=== PATIENT | female | born 1995 | race Caucasian/White ===

== ENCOUNTER → 2024-01-24 11:04 | Outpatient (REF) | payer OTHER, SELFPAY | LOC: HWRAD 11:04 | PROVIDERS: ATTENDING PHYSICIAN Obstetrics & Gynecology Gynecology; FAMILY PHYSICIAN Family Medicine | DX: N83.201 Unspecified ovarian cyst, right side (principal) | CPT/HCPCS: 76830; 76856 ==

== ENCOUNTER 2024-09-17 02:49 | Emergency (ER) | payer OTHER, SELFPAY ==
[2024-09-17 02:49] VITALS: BMI 20.4
[2024-09-17 02:58] VITALS: BP 110/66
[2024-09-17 03:00] VITALS: BP 103/80
[2024-09-17 04:00] VITALS: BP 98/70
--- NOTE | 2024-09-17 04:56 | ED.GENMED ---
History of Present Illness
General
Chief Complaint: Anxiety
Source: patient
Exam Limitations: none
Time Seen by Provider: 09/17/24 04:41
Nursing documentation reviewed up to this point in time: agreed with
History of Present Illness
History of Present Illness:
This is a 29-year-old female who has history of anxiety, chronically maintained on fluoxetine. She states she awoke suddenly tonight feeling panicked, heart palpitations, numbness and tingling around her mouth and tongue, tingling of her fingers,
vision difficulty. She felt well prior to going to bed. She is unsure if she was dreaming prior to waking up feeling panicked. She arrives via EMS and is feeling markedly improved since arrival, complete resolution of symptoms without return.
She denies risk of , has normal menstrual period currently.
She denies alcohol or drug use.
She denies significant caffeine use.
Past History
Past History
ED Past Medical History: Psychiatric (Anxiety); Negative Asthma, HTN, Hypercholesterolemia or NIDDM
ED Past Surgical History: None
Social History
Tobacco: Non-smoker
Alcohol: Occasional
Drug: None
Personal: Single
Living: with family
Employment: Employed
Family History
Family History: Other (Noncontributory)
Phy Exam
Physical Exam
Physical Exam:
GENERAL: 29-year-old female appears her stated age, awake and alert, pleasant, appears in no acute distress. Easily communicative.
EYE: pupils equal and reactive. anicteric
NECK: Supple, nontender, no meningismus, no significant adenopathy.
ENT:oral mucosa is moist. No rhinorrhea.
CARDIAC: Regular rate and rhythm. no murmur. No rub.
LUNGS: Clear breath sounds bilaterally, no acute respiratory distress, no wheezes/rales/rhonchi
ABDOMEN: Soft, nondistended, without focal tenderness, no r/g, no cvat. normoactive BS.
NEUROLOGICAL: Alert and oriented x3, no focal neuro deficits.
SKIN: Warm and dry, normal color, skin intact. No rash.
MUSCULOSKELETAL: No C/C/E. peripheral pulses are full and equal b/l. No palpable tenderness.
PSYCH: Normal and appropriate interaction.
Course
Vital Signs
Initial and Last Documented VS:
Initial Vital Signs
Pulse Resp
75 11
09/17/24 02:57 09/17/24 02:57
Last Documented Vital Signs
Temp Pulse Resp BP Pulse Ox
98.6 F 69 16 103/80 100
09/17/24 03:18 09/17/24 03:15 09/17/24 03:18 09/17/24 03:00 09/17/24 03:15
MDM/Problems Addressed
Differential Diagnosis Includes:
History and exam most consistent with acute anxiety/acute panic attack with hyperventilation syndrome. I wonder if patient awoke from a nightmare/night terror.
Symptoms promptly resolved without return.
Monitor shows normal sinus rhythm without ectopy. No evidence of arrhythmia.
Vital signs within normal limits.
At this point no indication for laboratory studies nor imaging.
Patient eager to be discharged to home.
Recommend she continue her current dose of fluoxetine, prompt follow-up with PCP for recheck.
Return precautions discussed.
Chronic conditions affecting care: Psychiatric illness
Acute Exacerbation and/or Progression of Chronic Illness: Psychiatric illness
*Pulse Oximetry
Patient hypoxic: no
*[facility] Interpretation
Rate: normal
Interpretation: normal
Rhythm: sinus
*Critical Care Note
Total Time (30-74mins, 75-104mins- exclusive of procedures): Not Applicable
ED Attending Note
-
Portions of this chart may have been created with voice recognition software.� Occasional wrong word or��sound alike� substitutions may have occurred due to the inherent limitations of voice recognition software.
Discharge Plan
Departure
Patient Disposition: Home (Routine Discharge)
Date of Disposition: 09/17/24
Time of Disposition: 04:56
Patient with high blood pressure during this ER visit?: No
Condition: Good
Discharge Problem:
Panic attack, Nightmare
Instructions: Panic Attack ED
Prescriptions:
No Action
spironolactone 100 mg Tablet
100 mg PO DAILY
fluoxetine 15 mg Tablet
15 mg PO DAILY
Referrals:
Mare Marinelli DO [Active] - Call in 1-3 days for appt
Interventions
Interventions:
*Risk Screen - Suicide Last Done: 09/17/24 02:58
*General Assessment Last Done: 09/17/24 02:58
*Neglect/Abuse Screening Last Done: 09/17/24 02:58
*ED- Fall Risk Assessment Last Done: 09/17/24 02:58
*ED COVID-19 Vaccine History Last Done: 09/17/24 02:58
ED-Psychological Assessment Last Done: 09/17/24 04:09
Discharge Date and Time
Print Language: KOREAN
== END 2024-09-17 05:11 | disposition home or self-care (01) ==
LOC: EMR 02:49
PROVIDERS: EMERGENCY PHYSICIAN Emergency Medicine; FAMILY PHYSICIAN Family Medicine
DX: F41.0 Panic disorder [episodic paroxysmal anxiety] (principal); F51.5 Nightmare disorder
CPT/HCPCS: 99283

== ENCOUNTER → 2025-01-21 10:12 | Outpatient (REF) | payer OTHER, SELFPAY | LOC: HWRAD 10:12 | PROVIDERS: ATTENDING PHYSICIAN Nurse Practitioner Adult Health; FAMILY PHYSICIAN Family Medicine | DX: R10.2 Pelvic and perineal pain (principal) | CPT/HCPCS: 76830; 76856 ==